=== PATIENT | female | born 1980 | race Caucasian/White ===

== ENCOUNTER 2023-06-13 10:40 | Emergency (ER) | payer BC, SELFPAY ==
[2023-06-13 10:43] VITALS: BP 125/79; PULSE 80; RESP 16; TEMP 36.4; O2SAT 100; BMI 22.8
--- NOTE | 2023-06-13 11:22 | ED_ITS ---
HPI - General Adult General Time Seen by Provider: 11:22 Date Seen: 06/13/23 Chief complaint: Ear/Nose/Throat Problem Stated complaint: Pain in R ear Time Seen by Provider: 06/13/23 11:07 Source: patient and RN notes reviewed Mode of arrival: ambulatory Limitations: no limitations History of Present Illness HPI narrative: This 43-year-old female coming into the ER after having right ear pain for about 8 days. She has a low-level constant pain and then will get a sharp electric type pain that shoots up into the scalp, she will get 1-3 these. She has felt dizzy and lightheaded at times, no visual changes. It does not change with laying on that side, there is no change with eating or drinking or chewing. No fevers or chills, no respiratory symptoms with this. Maybe some tinnitus at times, hearing maybe feels a little muffled in that ear or decreased. Her scalp on that side of her head above the ear and into the frontal area is tender, hurts to touch it. She states she does not hurt over her jaw or TMJ. She has been taking ibuprofen, was helping more initially but is not now. Related Data Previous Rx's Medication Instructions Recorded oxycodone 5 mg tablet 5 mg PO Q6H PRN pain #10 tabs 06/13/23 valacyclovir 1 gram tablet 1,000 mg PO TID #21 tabs 06/13/23 (Valtrex) Allergies Allergy/AdvReac Type Severity Reaction Status Date / Time No Known Drug Allergies Allergy Verified 06/13/23 10:48 Review of Systems Narrative: As per HPI. PFSH PFSH Social History Smoking Status: Never smoker How often do you have a drink containing alcohol: never How often do you have six or more drinks on one occasion: Never AUDIT-C Alcohol total score: 0 Non-prescribed substance use: denies use service: No Exam Const: Vital Signs, click to edit/add: Vital Signs - 24 hr 06/13/23 10:43 Temperature 97.6 F Pulse Rate [Right Pulse Oximeter] 80 Respiratory Rate 16 Blood Pressure [Ri ght Upper Arm] 125/79 Pulse Oximetry 100 Oxygen Delivery Me thod Room Air 43-year-old female is alert, interactive , no apparent distress. Symmetrical facial function. Pupils equal round reactive to light, sclera clear. Oropharynx are mucosa come no exudates erythema, jaw opens easily, does not cause any discomfort. No tenderness over TMJ. External ear on the right side looks normal, right ear canal normal, right tympanic membrane translucent, normal light reflex. There is no vesicles or abnormality noted in this right ear canal or on the tympanic membrane. No pre or postauricular adenopathy. Neck is supple, no cervical adenopathy, no thyromegaly masses or nodules. She states her skin is tender when I palpate on the right side above the urine just a little anterior to that. I see no evidence of any vesicles or rash. CV regular rate rhythm, no murmur, normal S1-S2, no S3-S4. Lungs are clear anteriorly. Documenting provider has reviewed patient's vital signs: yes Course Course ED Course: Did review with patient that I do think that this may be prodromal shingles. Did discuss with her that I was going to go talk to our ENT via phone quick. I did do so, he does agree. Agrees with no neuro imaging at this time and treatment with Valtrex. Did go back and review this with the patient. Vital Signs Vital signs: Initial Vital Signs Temperature 97.6 F 06/13/23 10:43 Temperature Source Temporal Artery Scan 06/13/23 10:43 Pulse Rate 80 06/13/23 10:43 Respiratory Rate 16 06/13/23 10:43 Blood Pressure 125/79 06/13/23 10:43 Blood Pressure Mean 94 06/13/23 10:43 Blood Pressure Position Sitting 06/13/23 10:43 Pulse Oximetry 100 06/13/23 10:43 Oxygen Delivery Method Room Air 06/13/23 10:43 Vital Signs Temperature 97.6 F 06/13/23 10:43 Pulse Rate 80 06/13/23 10:43 Respiratory Rate 16 06/13/23 10:43 Blood Pressure 125/79 06/13/23 10:43 Pulse Oximetry 100 06/13/23 10:43 Oxygen Delivery Method Room Air 06/13/23 10:43 Temperature 97.6 F 06/13/23 10:43 Pulse Rate 80 06/13/23 10:43 Respiratory Rate 16 06/13/23 10:43 Blood Pressure 125/79 06/13/23 10:43 Pulse Oximetry 100 06/13/23 10:43 Oxygen Delivery Method Room Air 06/13/23 10:43 Discharge Plan Discharge Clinical Impression: Otalgia of right ear Patient Disposition: Home, Self-Care Condition: Stable Instructions: Shingles (ED) Additional Instructions: Start the Valtrex and take as prescribed. I do think that this represents prodromal shingles or herpes zoster. Can continue with Tylenol 1000 mg 3 times a day baseline for pain, supplement with ibuprofen per bottle directions. Will provide some oxycodone to take at bedtime so that you can sleep. Do not drive or operate machinery, do not use alcohol on the oxycodone. Oxycodone can be constipating, may need to use MiraLax and/or senna while taking oxycodone to prevent constipation. A rash may develop, continue to take the Valtrex if it does. If you are not improving over the next week, if symptoms do not completely resolve with use of Valtrex, do recommend follow-up with ENT, can call the [facility] at [phone] to get scheduled or be added on by Dr. Torres Activity Level: Activity as Tolerated Prescriptions: New valacyclovir [Valtrex] 1 gram tablet 1,000 mg PO TID Qty: 21 0RF oxycodone 5 mg tablet 5 mg PO Q6H PRN (Reason: pain) Qty: 10 0RF Follow Up/Referrals: Celi Roberts MD [Primary Care Provider] - Stand Alone Forms: [employer] Info Instructions
== END 2023-06-13 12:21 | disposition home or self-care (01) ==
PROVIDERS: Emergency Provider Family Medicine; PCP Family Medicine
DX: H92.01 Otalgia, right ear (principal)
CPT/HCPCS: 99282; 99283

== ENCOUNTER 2023-08-07 06:18 | Emergency (ER) | payer BC, SELFPAY ==
[2023-08-07 06:25] VITALS: BP 109/77; PULSE 135; RESP 22; TEMP 38.3; O2SAT 99; BMI 22.8
--- NOTE | 2023-08-07 06:33 | ED_ITS ---
HPI - General Adult General Chief complaint: Cough Stated complaint: Fever,cough,headache Time Seen by Provider: 08/07/23 06:25 History of Present Illness HPI narrative: CC: Fevers, Headache, Chills, Body Aches, Cough pt. with symptoms for last 3 days. took nyquil at 0130 for sleep and fever. denies n/v, diarrhea. 43-year-old woman presenting to the emergency department concern of cough. She's experiencing jags/fits of coughing that are quite distressing. Hard to prevent. Mucus seems to be triggering. Arrives also with a fever. She's having bodyaches and chills. Just tried treatment with NyQuil. She's not been experiencing vomiting or diarrhea. No rash is noted. No history of asthma/respiratory disease. Related Data Previous Rx's Medication Instructions Recorded benzonatate 200 mg capsule 200 mg PO TID PRN cough #21 caps 08/07/23 codeine 10 mg-guaifenesin 100 mg/5 10 ml PO Q6H PRN cough #118 mL 08/07/23 mL oral liquid (Guaifenesin AC) prednisone 20 mg tablet 20 mg PO BID #11 tabs 08/07/23 Allergies Allergy/AdvReac Type Severity Reaction Status Date / Time No Known Drug Allergies Allergy Verified 08/07/23 06:20 Review of Systems Status of ROS: Reports: 6 or more systems reviewed and unremarkable except as noted in History and below PFSH [facility] Social History Smoking Status: Never smoker Second hand tobacco smoke exposure: No How often do you have a drink containing alcohol: never How often do you have six or more drinks on one occasion: Never AUDIT-C Alcohol total score: 0 Non-prescribed substance use: denies use service: No Exam Narrative: Exam Narrative: Appears fatigued. Occasional cough. More triggered by inhalation so tentative with quick or deep inhalations. Slightly laryngitic. I don't hear strider. Cough can be worse when seems to be trying to produce mucus. Is a congested in the nasal pharynx. Lungs with some coarser breath sounds in the upper mixon. No consistent wheeze. Heart is tachycardic in a regular rhythm. Skin is quite warm. No rash. Well perfused. Oropharynx with some mild erythema posteriorly. No cervical lymphadenopathy. Const: Vital Signs, click to edit/add: Vital Signs - 24 hr 08/07/23 06:25 Temperature 101.0 F H Pulse Rate [Right Pulse Oximeter] 135 H Respiratory Rate 22 Blood Pressure [Ri ght Upper Arm] 109/77 Pulse Oximetry 99 Oxygen Delivery Me thod Room Air Course Vital Signs Vital signs: Initial Vital Signs Respiratory Effort Normal, Spontaneous, Non-Labored 08/07/23 06:20 Respiratory Depth Normal 08/07/23 06:20 Respiratory Pattern Normal 08/07/23 06:20 Vital Signs Temperature 101.0 F H 08/07/23 06:25 Pulse Rate 135 H 08/07/23 06:25 Respiratory Rate 22 08/07/23 06:25 Blood Pressure 109/77 08/07/23 06:25 Pulse Oximetry 99 08/07/23 06:25 Oxygen Delivery Method Room Air 08/07/23 06:25 Temperature 101.0 F H 08/07/23 06:25 Pulse Rate 135 H 08/07/23 06:25 Respiratory Rate 22 08/07/23 06:25 Blood Pressure 109/77 08/07/23 06:25 Pulse Oximetry 99 08/07/23 06:25 Oxygen Delivery Method Room Air 08/07/23 06:25 Medications Administered Medications: Discontinued Medications Generic Name Dose Route Start Last Admin Trade Name Freq PRN Reason Stop Dose Admin Ibuprofen 600 mg 08/07/23 06:48 08/07/23 06:51 Ibuprofen 200 Mg Tablet PO 08/07/23 06:49 600 mg ONCE ONE Administration Medical Decision Making MDM Narrative Medical decision making narrative: I think is experiencing some degree of laryngospasm. With this fever and co mmunity prevalence would look for influenza. If negative, consider chest x-ray. given ice chips. Ibuprofen. Benzocaine spray for throat. Indeed positive for influenza A Stable in ER See patient discharge plan for further discussion. Lab Data Lab results reviewed: Yes I reviewed the patient's lab results Labs: Lab Results 08/07/23 Range/Units 06:23 SARS-CoV-2 (PCR) Negative SARS-CoV-2 (Negative) Influenza Type A (PCR) POSITIVE PCR FLU A A (Negative) Influenza Type B (PCR) Negative PCR FLU B (Negative) Discharge Plan Discharge Clinical Impression: Influenza A, Cough, Bronchitis, Laryngospasm Patient Disposition: Home, Self-Care Condition: Stable Instructions: Influenza (DC) Additional Instructions: You will probably need to limit your talking for a few days; but I think you know that. Focus on hydration. Reconstituted Powerade or Gatorade might be helpful. Water's always good. Thinning secretions with guaifenesin might be helpful - this is in your prescribed cough syrup today. This would likely be one of the active ingredients in your cough syrups you already have. Hydration of course helps with keeping secretions thin. Consider sleeping under the mist of a cool mist humidifier. Menthol vapors can be helpful Sucking on ice chips can help. Might try anesthetic throat lozenges or sprays like Sucrets or Chloraseptic. Can take up to 800 mg of ibuprofen or up to 1000 mg of acetaminophen per dose. Alternative to the ibuprofen might be up to 500 mg of naproxen 2 times daily. I have prescribed prednisone. Take 40 mg for your 1st dose this morning. I would take your 2nd dose of the day in the earlier afternoon. If you find prednisone to0 stimulating can take entire daily dose in the morning Prescriptions: New benzonatate 200 mg capsule 200 mg PO TID PRN (Reason: cough) Qty: 21 0RF prednisone 20 mg tablet 20 mg PO BID Qty: 11 0RF codeine-guaifenesin [Guaifenesin AC] 10-100 mg/5 mL liquid 10 ml PO Q6H PRN (Reason: cough) Qty: 118 0RF Follow Up/Referrals: Celi Roberts MD [Primary Care Provider] - Stand Alone Forms: [employer] Info Instructions
--- NOTE | 2023-08-07 06:48 | XR_ITS ---
Patient: MONSE ESCOTO Facility:?[facility] Patient ID:?[id number] Site Patient ID:?[id number]. Site :?[id number] Study:?XRay-Chest 1V-08/07/2023 7:06:10 AM Ordering Physician:?DR. QUINONES Final Report: Indication: Cough, fever, headache. Technique: One view(s) of the chest. Comparison: None available. Findings: Normal cardiomediastinal silhouette and pulmonary vasculature. Lungs are well inflated and clear. No focal consolidation, pleural effusion or pneumothorax. No acute osseous abnormality. Impression: No acute cardiopulmonary abnormality identified. Dictated by Nahomi Munoz MD @ 08/07/2023 7:14:03 AM Signed by:?Nahomi Munoz MD @08/07/2023 7:14:03 AM (Electronic Signature)
[2023-08-07] MEDS: IBUPROFEN 200 MG TABLET 600 MG PO (06:51)
[2023-08-07 07:19] LABS: PCR FLU A POSITIVE PCR FLU A (Negative); PCR FLU B Negative PCR FLU B (Negative); SARS PCR* Negative SARS-CoV-2 (Negative)
== END 2023-08-07 08:13 | disposition home or self-care (01) ==
PROVIDERS: Emergency Provider Family Medicine; PCP Family Medicine
DX: J09.X2 Influenza due to identified novel influenza A virus with other respiratory manifestations (principal); J40 Bronchitis, not specified as acute or chronic
CPT/HCPCS: 71045; 87631; 99283; 99284; A9270

== ENCOUNTER 2024-01-30 06:47 | Day surgery (SDC) | payer BC, SELFPAY ==
[2024-01-30] VITALS (14 sets, daily range): BP systolic 113–124; BP diastolic 75–93; PULSE 80–112; RESP 10–16; TEMP 36.6–37; O2SAT 95–100; BMI 23.3
--- OUTSIDE RECORDS SUMMARY | 2024-01-30 06:51 | XMS_ITS | Clinical Summary ---
Author Organization [employer] Address [place], [place] [address] Care Team Providers Care Lightout Examiner Name Role Phone Celi Roberts MD Primary Care Provider [phone] Allergies No known active allergies Medications Medication Sig Dispensed Refills Start Date End Date Status cyclobenzaprine (FLEXERIL) 5 mg tabletIndications :Muscle spasm Take 1-2 Tablets (5-10 mg) by mouth 3 times daily if needed for Muscle Spasm. 30 Tablet 05/26/2022 01/28/2024 Discontinued (*Patient states no longer taking) Active Problems Problem Noted Date Diagnosed Date Basal cell carcinoma with sebaceous differentiat ion 10/23/2016 Overview (10/23/2016): left buddhist, followed by [facility] Family history of breast cancer 10/23/2016 Overview (10/23/2016): Alternate Mammogram Breast MRI every 6 months. Resolved Problems Problem Noted Date Diagnosed Date Resolved Date Encounter for sterilization 02/26/2017 02/11/2020 Dysthymic disorder 07/24/2014 6 Routine follow-up 05/19/2012 08/31/2014 Supervision of other normal 08/27/2011 05/19/2012 Overview (03/24/2012): Previous vaginal delivery at 38 weeks: [facility] Immunization History Administered Date(s) Administered ? ? Influenza, Inactivated (Age >=3 years) 02/10/2009, 02/18/2012 ? ? 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 Thick mucus, nasal congestion, right feels worse.) 12/30/2023 Travel 12/17/2023 Telephone [facility] [address] [place] [address] Celi Roberts MD Referral (ENT ) 12/01/2023 3:10 PM CDT - 12/01/2023 11:59 PM CDT Hospital Encounter [facility] [address] [place] [address] eCli Roberts MD Sinusitis, unspecified chronicity, unspecified location 12/01/2023 Travel 11/12/2023 3:30 PM CDT Office Visit [facility] [address] [place] [address] Celi Roberts MD Sinus Problem (pressure; about 4 months ) 11/12/2023 Travel from Last 3 Months Immunizations Name Administration Dates Next Due COVID-19 vaccine (Moderna 100mcg/0.5mL) MD JACKSONV 06/28/2020,05/31/2020 DTaP 08/28/2005 Influenza, IIV3 (Age >=3 years) 02/18/2012,02/10 Influenza, IIV4 02/05/2023, 2,02/22/2020, 019,02/24/2018,02/19/2017,02/20/2016,10/2014,03/08/2014,02/02/2013 Tdap 01/22/2017,08/28/2005 Tuberculin (PPD) 06/01/2012 Family History Medical History Relation Name Comments Heart Disease Father pacemaker Cancer-prostate Maternal Grandfather Cancer Maternal Grandmother Lung Cancer-breast Maternal Grandmother Cancer-breast Other half sister Cancer-breast Paternal Grandmother Relation Name Status Comments Father Alive Maternal Grandfather Maternal Grandmother Mother Alive Other half sister Alive Paternal Grandmother Sister Alive Son 1 Alive Son 2 Alive Social History Tobacco Use Types Packs/Day Years Used Date Smoking Tobacco: Never Smokeless Tobacco: Never Tobacco Cessation:Counseling Given: Yes Alcohol Use Standard Drinks/Week Comments Yes 1.7 (1 standard drink = 0.6 oz p ure alcohol) occasional PHQ-2 Answer Date Recorded PHQ-2 TOTAL SCORE 0 05/15/2022 Social Connections Answer Date Recorded Frequency of Communication with Friends and Fami ly Not on file 05/20/2023 Financial Resource Strain Answer Date R ecorded Difficulty of Paying Living Expenses 3 05/15/2022 Difficulty of Paying Living Expenses Not on file 05/15/2022 Food Insecurity Answer Date Recorded Worried About Running Out of Food in the Last Ye ar 1 05/15/2022 Transportation Needs Answer Date Record ed Lack of Transportation (Medical) 1 05/15/2022 Housing Stability Answer Date Recorded Unable to Pay for Housing in the Last Year 1 05/15/2022 Sex and Gender Information Value Date Recorded Sex Assigned at Not on file Gender Identity Not on file Sexual Orientation Not on file Obstetrics History Para Term AB IAB SAB Ectopic Multiple Livin g Live Births 2 2 2 2 Date Outcome GA Total Labor Labor/2nd/3rd Weight Sex Type Anes PTL Claudette A1 A5 Name Clin 009 Term 38w 0d 2.98 kg (6 lb 9 oz) M Vag Armando Comments:mild pph, donna vated BP 38 weeks 012 Term 37w 0d 5h 00m/ 3.29 kg (7 lb 4 oz) M Kentrell Armando Comments:System Genera meir. Please review and update details. Last Filed Vital Signs Vital Sign Reading Time Taken Comments Blood Pressure 100/60 01/28/2024 3:46 PM CDT Pulse 85 01/28/2024 3:46 PM CDT Temperature 36.6 ??C (97.9 ??F) 05/26/2022 10:[address] Respiratory Rate 21 05/26/2022 10:16 AM COMMUNITY MUSIC THERAPIST Oxygen Saturation 97% 01/28/2024 3:46 PM CDT Inhaled Oxygen Concentration - - Weight 61.8 kg (136 lb 4.8 oz) 01/28/2024 3:46 P M CDT Height 163 cm (5' 4.17) 01/28/2024 3:46 PM CDT Body Mass Index 23.27 01/28/2024 3:46 PM CDT Plan of Treatment Scheduled Procedures Name Priority Associated Diagnoses Date/Ti me SURGICAL PROCEDURE (TYPE PRO CEDURE DESCRIPTION BELOW) Elective Chronic maxillary sinusitis Chronic ethmoidal sinusitis Health Maintenance Due Date Last Done Comments Hepatitis C screening for age 18-79 1998 Pap test for age 21-65 02/10/2023 0, 08/31/2014, 08/27/2011, Additional history exists Depression screening for age 12+ 05/15/2023 05/15/2022, 01/16/2021, 03/23/2019, Additional history exists COVID-19 vaccine series ( season) 2024 04/24/2021, 06/28/2020, 05/31/2020 Influenza for age 9-49 01/11/2024 3, 02/13/2022, 02/22/2020, Additional history exists BMI (ht and wt on same day) for age 18+ 01/27/2025 01/28/2024, 11/12/2023, 05/15/2022, Additional history exists Tetanus booster 01/22/2027 01/22/2017, 08/28/2005 HIV for age 15-65 Completed 08/31/2014, , 08/10/2008 Tdap Completed 01/22/2017, 08/28/2005 Pneumococcal series for age 6-64 Aged Out No longer eligible based on patient's age to complete this topic Procedures Procedure Name Priority Date/Time Associated Diagnosis Comments CBC WITH AUTO DIFFERENTIAL Routine 01/28/2024 4:22 PM CDT BASIC METABOLIC PANEL Routine 01/28/2024 4:22 PM CDT Preop examination Acute recurrent maxillary sinusitis CT SINUS WO Routine 12/01/2023 3:21 PM CDT Sinusitis, unspecified chronicity, unspecified location [employer] PREP PAP SCREEN IMAGED Routine 02/11/2020 12:00 PM CDT Screening for malignant neoplasm of cervix ANTI HIV 1/2 Routine 08/31/2014 4:42 PM CDT Screen for STD (sexually transmitted disease) from Last 3 Months or Most Recently Relevant to Health Maintenance Results * (ABNORMAL) CBC WITH AUTO DIFFERENTIAL (01/28/2024 4:22 PM CDT) WHITE BLOOD CELL COUNT 8.7 3.8 - 10.8 Thousand/u L [facility] RED BLOOD CELL COUNT 4.61 3.80 - 5.10 Million/uL [facility] HEMOGLOBIN 12.0 11.7 - 15.5 g/dL [facility] HEMATOCRIT 38.3 35.0 - 45.0 % [facility] MCV 83.1 80.0 - 100.0 fL [facility] MCH 26.0(L) 27.0 - 33.0 pg [facility] MCHC 31.3(L) 32.0 - 36.0 g/dL [facility] RDW 12.2 11.0 - 15.0 % [facility] PLATELET COUNT 290 140 - 400 Thousand/u L [facility] MPV 11.4 7.5 - 12.5 fL [facility] ABSOLUTE NEUTROPHILS 4,524 1,500 - 7,800 cells/uL [facility] ABSOLUTE LYMPHOCYTES 3,254 850 - 3,900 cells/uL [facility] ABSOLUTE MONOCYTES 705 200 - 950 cells/uL [facility] ABSOLUTE EOSINOPHILS 157 15 - 500 cells/uL [facility] ABSOLUTE BASOPHILS 61 0 - 200 cells/uL [facility] NEUTROPHILS 52 % [facility] LYMPHOCYTES 37.4 % [facility] MONOCYTES 8.1 % [facility] EOSINOPHILS 1.8 % [facility] BASOPHILS 0.7 % [facility] 01/28/2024 4:22 PM CDT 01/28/2024 4:23 PM CDT Cricket Dailey MD [facility]ATOLOGY [facility] [address] [place] [address], [facility] [address] [place] [address] * BASIC METABOLIC PANEL (01/28/2024 4:22 PM CDT) [facility] GLUCOSE 83 65 - 99 mg/dL [facility] Comment: ? Fasting reference interval UREA NITROGEN (BUN) 10 7 - 25 mg/dL [facility] CREATININE 0.63 0.50 - 0.99 mg/dL [facility] EGFR 113 > OR = 60 mL/min/1. 73m2 [facility] BUN/CREATININE RATIO SEE NOTE: (calc) [facility] Comment: ?? Not Reported: BUN and Creatinine are within ?? reference range. ? SODIUM 139 135 - 146 mmol/L [facility] POTASSIUM 4.2 3.5 - 5.3 mmol/L [facility] CHLORIDE 102 98 - 110 mmol/L [facility] CARBON DIOXIDE 27 20 - 32 mmol/L [facility] ELECTROLYTE BALANCE 10 7 - 17 mmol/L (calc) [facility] CALCIUM 9.1 8.6 - 10.2 mg/dL [facility] Blood BLOOD SPECIMEN / Unknown 01/28/2024 4:22 PM CDT 01/28/2024 4:23 PM CDT Cricket Dailey MD CHEMISTRY [facility] [address] [place] [address], [facility] [address] [place] [address] * CT SINUS WO (12/01/2023 3:21 PM CDT) Anatomical Region Laterality Modality SINUS Computed Tomogra phy 12/02/2023 1:37 PM CDT Narrative 12/02/2023 1:37 PM CDT For Patients: ??As a result of the Cures Act, medical imaging exams and procedure reports are released immediately into your electronic medical record. ??You may view this report before your referring provider. ??If you have questions, please contact your health care provider. Indication: Chronic sinusitis. Technique: Noncontrast CT of the paranasal sinuses with multiplanar reconstruction. Comparison: Correlated with MRI brain dated 03/15/2014. Findings: Clear left frontal sinus and recess. Under developed right frontal sinus with opacification of the right frontal recess and agger nasi cells. Operative changes left maxillary antrostomy and ethmoidectomy. Complete opacification of the right maxillary sinus with opacification of the ostiomeatal complex and erosive changes in the medial sinus wall. Additional opacification throughout the anterior ethmoid air cells with septal hyperostosis. The sphenoid sinuses and ostia are clear. There is anatomic variant pneumatization of the left anterior clinoid process mild rightward deviation of the nasal septum with no large septal spur. The mastoid air cells are clear. The imaged intracranial structures and orbits appear within normal limits. Impression: 1. Operative changes of left maxillary antrostomy and ethmoidectomy with clear left sinus outflow tracts. 2. Complete opacification of the right maxillary sinus and anterior ethmoid air cells with maxillary wall erosion and ethmoid septal hyperostosis as sequela of chronic sinusitis. Please note that all CT scans at this facility use dose modulation, iterative reconstruction, and/or weight-based dosing when appropriate to reduce radiation dose to as low as reasonably achievable. Dictated by Nik Anderson MD @ 12/02/2023 1:37:31 PM (Electronically Signed) Procedure Note Marcelino Anderson MD - 12/02/2023 For Patients: As a result of the Cures Act, medical imagingexams and procedure reports are released immediately into your electronicmedical record. You may view this report before your referring provider.If you have questions, please contact your health care provider. Indication: Chronic sinusitis. Technique: Noncontrast CT of the paranasal sinuses with multiplanar reconstruction. Comparison: Correlated with MRI brain dated 03/15/2014. Findings: Clear left frontal sinus and recess. Under developed right frontal sinuswith opacification of the right frontal recess and agger nasi cells. Operative changes left maxillary antrostomy and ethmoidectomy. Completeopacification of the right maxillary sinus with opacification of theostiomeatal complex and erosive changes in the medial sinus wall.Additional opacification throughout the anterior ethmoid air cells withseptal hyperostosis. The sphenoid sinuses and ostia are clear. There is anatomic variantpneumatization of the left anterior clinoid process mild rightwarddeviation of the nasal septum with no large septal spur. The mastoid air cells are clear. The imaged intracranial structures andorbits appear within normal limits. Impression: 1. Operative changes of left maxillary antrostomy and ethmoidectomy withclear left sinus outflow tracts. 2. Complete opacification of the right maxillary sinus and anteriorethmoid air cells with maxillary wall erosion and ethmoid septalhyperostosis as sequela of chronic sinusitis. Please note that all CT scans at this facility use dose modulation,iterative reconstruction, and/or weight-based dosing when appropriate toreduce radiation dose to as low as reasonably achievable. Dictated by Nik Anderson MD @ 12/02/2023 1:37:31 PM (Electronically Signed) Celi Roberts MD CT * [employer] THIN PREP PAP SCREEN IMAGED (02/11/2020 12:00 PM CDT) Case Report Gynecologic Cytology Report ? Case: [id number] ? Authorizing Provider: ??Celi Roberts MD ?Collected: ? 02/11/2020 1200 ? Ordering Location: ? [facility] ?Received: ?02/11/2020 1313 ? Clinic ? First Screen: ?[facility] ? Specimen: ?[employer] ThinPrep Vial Screening, Cervical ? 02/22/2020 2:27 PM CDT [facility]AL [facility] INTERPRETATION/ RESULT NEGATIVE FOR INTRAEPITHELIAL LESION OR MALIGNANCY (NIL) (none) 02/22/2020 2:27 PM CDT [facility] IMEN ADEQUACY Satisfactory for evaluation Endocervical component present 02/22/2020 2:27 PM CDT [facility] HPV REQUEST HPV if ASCUS 02/22/2020 2:27 PM CDT [facility] Date of LMP 01/28/2020 02/22/2020 2:27 PM CDT [facility] Last Pap Date 08/31/14 02/22/2020 2:27 PM CDT [facility] Last Pap Result NIL 0 2:27 PM CDT [facility] Abnormal Pap or [place] Bx in last 5 years No 02/22/2020 2:27 PM CDT [facility] Menstrual Status Regular Periods 02/22/2020 2:27 PM CDT [facility] [place] Bx Done Today No 02/22/2020 2:27 PM CDT [facility] Additional Information None given 02/22/2020 2:27 PM CDT [facility] Comment: Cytology is screened at [facility] - [address], [place] [address] and [facility] - [address] [place] [address] and Laboratory - [address] [place] [address] Interpreted at [facility] - [address], [place] [address] Automated Review Successful 02/22/2020 2:27 PM CDT [facility] Comment:Specimen processed s uccessfully by automated harness preparer device, ThinPrep Imaging System, [employer] Note The pap test is a screening technique, not a diagnostic procedure. It is used primarily to screen for squamous cancers and precursor lesions. Published studies have shown that it is subject to both false negative and false positive results. The pap test should not be used as the sole means to diagnose or exclude pre-malignant and malignant lesions. 02/22/2020 2:27 PM CDT [facility] ENTRAL LABORATORY Other (Cervical) Non-Blood / Unknown 02/11/2020 12:00 PM CDT 02/11/2020 1:13 PM CDT Celi Roberts MD [facility] [address] [place] [address], * ANTI HIV 1/2 (08/31/2014 4:42 PM CDT) HIV-1/HIV-2 ANTIBODY Non-Reacti ve Non-Reacti ve 09/01/2014 7:50 PM CDT [facility] Blood specimen (specimen) BLOOD SPECIMEN / Unknown Venipuncture / Unknown 08/31/2014 4:42 PM CDT 08/31/2014 4:42 PM CDT Narrative [facility] - 09/01/2014 7:50 PM CDT HIV-1 p24 and HIV-1/HIV-2 Ab not detected Celi Roberts MD SEND OUTS Performing Organization Address City/[facility]/ZIP Co de Phone Number [facility] [address] [place] [address], from Last 3 Months or Most Recently Relevant to Health Maintenance Advance Directives * Full Code (Latest Code Status on File) Date Activated Date Inactivated Comments 02/27/2017 6:52 AM 02/27/2017 2:52 PM Question Answer Comments Code Status Discussion: Discussed Care Teams Lightout Examiner Relationship Specialty Start Date End Date Celi Roberts MD PCP - General 12/15/07
[2024-01-30 07:10] LABS: Ur HCG Qualitative* Negative (Negative)
[2024-01-30] MEDS: OXYMETAZOLINE 0.05% NASAL SPRAY 2 SPRAY NOSTRIL-B (07:15)
[2024-01-30] MEDS: LACTATED RINGERS 1000 ML 1,000 ML 100 ML IV ×2 (07:15→10:11)
[2024-01-30] MEDS: SODIUM CHLORIDE 0.9 % (FLUSH) 10 ML SYRINGE IVF (07:15)
[2024-01-30] MEDS: COCAINE HCL 4 % 4 ML SOLUTION NOSTRIL-R (08:10)
[2024-01-30] MEDS: MUPIROCIN 1 GM PACKET 1 APPLIC TOPICAL (08:20)
[2024-01-30] MEDS: BUPIVACAINE 0.5%/EPINEPHRINE 0.9 MG (30.9 ML) INJECTION (08:20)
[2024-01-30] MEDS: AYR SALINE NASAL GEL 1 APPLIC NOSTRIL-R (08:20)
--- NOTE | 2024-01-30 08:40 | W.ANESCHARGE ---
Anesthesia Charges Start Date/Time Anesthesia Start Date: 01/30/24 Anesthesia Start Time: 07:50 Stop Date/Time Anesthesia Stop Date: 01/30/24 Anesthesia Stop Time: 08:45
--- NOTE | 2024-01-30 08:45 | W.ANESCHARGE ---
Anesthesia Charges Start Date/Time Anesthesia Start Date: 01/30/24 Anesthesia Start Time: 07:50 Stop Date/Time Anesthesia Stop Date: 01/30/24 Anesthesia Stop Time: 08:45
[2024-01-30] MEDS: METOCLOPRAMIDE HCL 5 MG/ML INJ 10 MG IVP (09:20)
--- NOTE | 2024-01-30 09:35 | W.PM.ENTPROC ---
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 Note that image guidance and 0 degree endoscopy were used throughout the procedure. Under general trach anesthesia patient was prepped draped usual fashion. The nose was decongested injected. The middle turbinate was medialized in the inferior quarter of the uncinate process taken down exposing natural ostium to maxillary sinus. This was occluded by polyp tissue was was removed and the antrostomy enlarged to a 9 mm diameter. A large amount of purulent fluid and thickened polypoid mucosa was removed from around the os as well as the floor and merrill of the sinus. This was cultured and also sent to pathology. The ethmoid bulla was taken down and dissection carried out anterior to posterior direction and anterior ethmoidectomy performed removing again a moderate amount of polypoid tissue. Merocel packing was placed in middle meatus and 1 pack was placed beneath that 1. The patient procedure well was taken recovery in satisfactory condition blood loss less than 10 mL. Surgeon: Vin Torres MD
[2024-01-30] MEDS: ONDANSETRON 2 MG/ML inj 4 MG IVP (10:10)
== END 2024-01-30 11:27 | disposition home or self-care (01) ==
LOC: OR 06:49
PROVIDERS: Anesthesiology; PCP Family Medicine; Visit Provider Otolaryngology
PROC: (CPT 31231; principal; 2024-01-30 08:00)
DX: J32.0 Chronic maxillary sinusitis (principal); J32.2 Chronic ethmoidal sinusitis; J34.3 Hypertrophy of nasal turbinates
CPT/HCPCS: 31267; 31254; 00160; 81025; 87070; 87075; 87186; 87205; 88305; A9270; J0330; J1100; J2250; J2405; J2704; J2765; J3010; J3490; J7120